=== PATIENT | male | born 1975 | race Caucasian/White ===

== ENCOUNTER 2018-01-10 14:01 | Emergency (ER) | payer MEDICAID | END 2018-01-10 16:25 | disposition home or self-care (01) | LOC: FTE 14:01 | DX: S62.525A Nondisplaced fracture of distal phalanx of left thumb, initial encounter for closed fracture (principal); W01.0XXA Fall on same level from slipping, tripping and stumbling without subsequent striking against object, initial encounter; Y92.9 Unspecified place or not applicable; Z87.891 Personal history of nicotine dependence | CPT/HCPCS: 29130; 73140; 99283-25 ==